=== PATIENT | female | born 1970 | race African-American/Black ===

== ENCOUNTER 2018-12-02 05:06 | Emergency (ER) | payer OTHER ==
[~2018-12-02] VITALS: Ht 172.7 cm; Wt 117.9 kg
[2018-12-02 05:06] VITALS: BP_SYST 130
[2018-12-02] MEDS ORDERED: ACETAMINOPHEN 325 MG TABLET PO ONE (05:15)
[2018-12-02 06:00] VITALS: BP_SYST 130
== END 2018-12-02 06:00 ==
LOC: SED 05:06
DX: S43.401A Unspecified sprain of right shoulder joint, initial encounter (principal); E11.9 Type 2 diabetes mellitus without complications; I50.9 Heart failure, unspecified; R03.0 Elevated blood-pressure reading, without diagnosis of hypertension; V43.92XA Unspecified car occupant injured in collision with other type car in traffic accident, initial encounter; Y93.89 Activity, other specified; Y92.410 Unspecified street and highway as the place of occurrence of the external cause; Y99.8 Other external cause status
CPT/HCPCS: 71045; 72040-TC; 73030; 99283